=== PATIENT | male | born 1945 | race Caucasian/White ===

== ENCOUNTER 2020-01-30 12:43 | Emergency (ER) | payer OTHER ==
[2020-01-30 12:56] VITALS: BP 120/67; PULSE 90; TEMP 97.9; BMI 25.0
--- NOTE | 2020-01-30 13:11 | PDOC ---
History of Present Illness - General History Source: Patient Exam Limitations: No Limitations <Tatiana Ro - Last Filed: 01/30/20 13:06> <[place] - Last Filed: 01/30/20 14:15> - General Chief Complaint: Injury Stated Complaint: RT. HAND INJURY Time Seen by Provider: 01/30/20 12:57 Past History - Past Medical History COPD: No Diabetes: Yes - Psycho Social/Smoking Cessation Hx Smoking History: Never smoked <Tatiana Ro - Last Filed: 01/30/20 13:06> <CyndiDavid - Last Filed: 01/30/20 14:15> - Past Medical History Allergies/Adverse Reactions: Allergies Allergy/AdvReac Type Severity Reaction Status Date / Time No Known Allergies Allergy Verified 01/30/20 12:55 Home Medications: Ambulatory Orders Cephalexin [Keflex] 500 mg PO Q6H #28 capsule 01/30/20 *Physical Exam - Vital Signs Last Vital Signs Temp Pulse Resp BP Pulse Ox 97.9 F 90 18 120/67 97 01/30/20 12:53 01/30/20 12:53 01/30/20 12:53 01/30/20 12:53 01/30/20 12:53 - Physical Exam General Appearance: No: Apparent Distress Extremity: positive: Other (+R thumb subungal hematoma, +swelling of R thumb, no deformity, no other trauma to R hand noted, RUE neurovascularly intact) Neurologic: positive: Alert <Tatiana Ro - Last Filed: 01/30/20 13:06> - Vital Signs Last Vital Signs Temp Pulse Resp BP Pulse Ox 97.9 F 90 18 120/67 97 01/30/20 12:53 01/30/20 12:53 01/30/20 12:53 01/30/20 12:53 01/30/20 12:53 <David Hanna - Last Filed: 01/30/20 14:15> Procedures - Nail Trephination Nail Trephination Location: R thumb Sterile Dressing Applied: Yes Finger Splint: No Progress: 01/30/20 14:14 Insulin needle syringe used to create 2 marina holes to base of nail bed. Local wound care with normal saline and Betadine with topical antibiotics and gauze dressing <David Hanna - Last Filed: 01/30/20 14:15> ED Treatment Course - RADIOLOGY Radiology Studies Ordered: Category Date Time Status FINGER(S) RIGHT [RAD] Stat Radiology 01/30/20 13:02 Ordered <JiaTatiana moreau - Last Filed: 01/30/20 13:06> Medical Decision Making - Medical Decision Making 74 y/o M hx of DM presents with R thumb injury from yesterday. States door closed on his thumb. Denies other injuries Plan: Xray to r/o fracture Patient did not want pain meds at this time 01/30/20 13:06 <Tatiana Ro - Last Filed: 01/30/20 13:06> - Medical Decision Making 01/30/20 13:56 Patient s/p nail trephination with insulin syringe needle using 2 marina hole method to base of nail bed. Local wound care and dressing. Patient discharged with instructions to keep the affected digit clean and dry. Patient to return for re-evaluation if there is concern for re-accumulation of the hematoma with increased pain or signs of infection such as warmth redness excessive swelling or fever. Patient's tetanus is up-to-date. X-ray was negative for any fracture <David Hanna - Last Filed: 01/30/20 14:15> Discharge <Tatiana Ro - Last Filed: 01/30/20 13:06> - Discharge Information Problems reviewed: Yes <David Hanna - Last Filed: 01/30/20 14:15> - Discharge Information Clinical Impression/Diagnosis: Subungual hematoma Condition: Good Disposition: HOME - Additional Discharge Information Prescriptions: Cephalexin [Keflex] 500 mg PO Q6H #28 capsule - Follow up/Referral Referrals: Pat Corbin NP [Primary Care Provider] - - Patient Discharge Instructions Patient Printed Discharge Instructions: DI for Subungual Hematoma Additional Instructions: Keep wound clean and dry. Do not soak digit. Return for any concern for re-accumulation of the hematoma with worsening pain or signs of infection such as discussed today. You were started on antibiotics. Take medication as prescribed and return in 2 days for reassessment
[2020-01-30] MEDS ORDERED: IBUPROFEN 400 MG TABLET (FP) PO ONE ×2 (13:53)
== END 2020-01-30 14:15 | disposition home or self-care (01) ==
LOC: JERFT 12:43
PROC: 0H9QXZZ Drainage of Finger Nail, External Approach (ICD-10-PCS; principal; 2020-01-30)
DX: S60.111A Contusion of right thumb with damage to nail, initial encounter (principal); W23.0XXA Caught, crushed, jammed, or pinched between moving objects, initial encounter; Y93.89 Activity, other specified; Y92.89 Other specified places as the place of occurrence of the external cause; Y99.8 Other external cause status
CPT/HCPCS: 11740; 73140-TC-RT-FY; 99283-25